=== PATIENT | male | born 1945 | race Caucasian/White ===

== ENCOUNTER 2017-04-30 11:18 | Outpatient (CLI) | payer MEDICARE, OTHER ==
[~2017-04-30] VITALS: Ht 195.6 cm; Wt 167.8 kg
[2017-04-30] MEDS ORDERED: DOXA8TAB73 PO (11:44)
[2017-04-30] MEDS ORDERED: ASPI-586 PO (11:44)
[2017-04-30] MEDS ORDERED: SIMV40TA4 PO (11:44)
[2017-04-30] MEDS ORDERED: PENI500T PO (11:44)
[2017-04-30] MEDS ORDERED: RANI150T90 PO (11:44)
[2017-04-30] MEDS ORDERED: L.AC1CAP6 PO (11:44)
[2017-04-30] MEDS ORDERED: METO-333 PO (11:44)
[2017-04-30] MEDS ORDERED: OMEG-109 PO (11:44)
[2017-04-30 12:30] LABS: BASOPHILS % (AUTO) 1 % (0-10); EOSINOPHILS # (AUTO) 0.2 10^3/uL (0.0-0.3); EOSINOPHILS % (AUTO) 3 % (0-10); HEMATOCRIT 43 % (40-54); LYMPHOCYTES # (AUTO) 1.9 X 10^3 (1.0-4.0); LYMPHOCYTES % (AUTO) 26 % (12-44); MEAN CORPUSCULAR HEMOGLOBIN 29 PG (25-34); MEAN CORPUSCULAR HGB CONC 32 G/DL (32-36); MEAN CORPUSCULAR VOLUME 90 FL (80-99); MEAN PLATELET VOLUME 10.1 FL (7.4-10.4); MONOCYTES # (AUTO) 0.9 X 10^3 (0.0-1.0); MONOCYTES % (AUTO) 13 % (0-12); NEUTROPHILS # (AUTO) 4.2 X 10^3 (1.8-7.8); NEUTROPHILS % (AUTO) 57 % (42-75); PLATELET COUNT 253 10^3/uL (130-400); RED BLOOD COUNT 4.81 10^6/uL (4.35-5.85); RED CELL DISTRIBUTION WIDTH 15.1 % (10.0-14.5); WHITE BLOOD COUNT 7.3 10^3/uL (4.3-11.0)
[2017-04-30 12:34] LABS: BILIRUBIN,URINE NEGATIVE (NEGATIVE); CLARITY,URINE VERY CLOUDY; COLOR,URINE YELLOW; GLUCOSE, URINE (UA) NEGATIVE (NEGATIVE); KETONES,URINE NEGATIVE (NEGATIVE); LEUKOCYTE ESTERASE ,URINE 3+ (NEGATIVE); NITRITE,URINE POSITIVE (NEGATIVE); PH,URINE 5 (5-9); PROTEIN,URINE 3+ (NEGATIVE); UROBILINOGEN,URINE NORMAL (NORMAL)
[2017-04-30 12:43] LABS: BACTERIA,URINE LARGE /HPF; RBC,URINE 50-100 /HPF; WBC,URINE 50-100 /HPF
[2017-04-30 12:47] LABS: CALCIUM 9.3 MG/DL (8.5-10.1); CREATININE SERUM 1.35 MG/DL (0.60-1.30); POTASSIUM 4.4 MMOL/L (3.6-5.0)
== END 2017-04-30 12:20 | disposition home or self-care (01) ==
LOC: PREOP 11:18
PROVIDERS: ATTEND Urology
DX: Z01.812 Encounter for preprocedural laboratory examination (principal); Z11.2 Encounter for screening for other bacterial diseases; N40.1 Benign prostatic hyperplasia with lower urinary tract symptoms; R33.8 Other retention of urine; N31.9 Neuromuscular dysfunction of bladder, unspecified; N21.0 Calculus in bladder
CPT/HCPCS: 36415; 80048; 81000; 85025; 87077; 87081; 87088

== ENCOUNTER 2017-05-02 06:42 | Day surgery (SDC) | payer MEDICARE, OTHER ==
[~2017-05-02] VITALS: Ht 195.6 cm; Wt 167.8 kg
[~2017-05-02 06:42] MED LIST: ASPI-586 PO; DOXA8TAB73 PO; L.AC1CAP6 PO; METO-333 PO; OMEG-109 PO; PENI500T PO; RANI150T90 PO; SIMV40TA4 PO
[2017-05-02] MEDS ORDERED: cefTRIAXone 1 GM (ROCEPHIN) VIAL ONE (06:44)
[2017-05-02] MEDS ORDERED: NS (IVPB) 50 ML ONE (06:45)
[2017-05-02 07:00] VITALS: BP 129/75
[2017-05-02] MEDS ORDERED: LEVOFLOXACIN 500 MG/D5W 100 ML (PRE-MIX) IV ONE (07:00)
[2017-05-02] MEDS ORDERED: cefTRIAXone 1 GM/NS 50 ML IVPB IV ONE ×2 (07:00)
--- NOTE | 2017-05-02 07:02 | Progress Note-Pre Operative ---
Pre-Operative Progress Note H&P Reviewed The H&P was reviewed, patient examined and no changes noted. Date Seen by Provider: May 02, 2017 Time Seen by Provider: 07:01 Date H&P Reviewed: May 02, 2017 Time H&P Reviewed: 07:01 Pre-Operative Diagnosis: BPH, RETENTION, AND BLADDER STONES GENIA SHELDON MD May 02, 2017 7:02 am
[2017-05-02] MEDS ORDERED: proPOfol 200 MG/20 ML (DIPRIVAN) VIAL IV ONE (07:03)
[2017-05-02] MEDS ORDERED: DEXAMETHASONE 10 MG/ML (DECADRON) 1 ML VIAL ONE (07:03)
[2017-05-02] MEDS ORDERED: fentaNYL INJECTION 100 MCG/2 ML AMP ONE (07:03)
[2017-05-02] MEDS ORDERED: LIDOCAINE PF 2% 5 ML (XYLOCAINE) VIAL ONE (07:03)
[2017-05-02] MEDS ORDERED: ONDANSETRON 4 MG/2 ML (SDV) Z0FRAN ONE (07:03)
[2017-05-02] MEDS ORDERED: SEVOFLURANE (ULTANE) 15 ML INHAL SOLN ONE ×5 (07:03→08:31)
--- NOTE | 2017-05-02 07:03 | Progress Note-Post Operative ---
Post-Operative Progess Note Surgeon (s)/Manager Personnel Selection (s) Surgeon GENIA SHELDON MD Manager Personnel Selection: GERMÁN Pre-Operative Diagnosis BPH, RETENTION, AND BLADDER STONES Post-Operative Diagnosis SAME Procedure & Operative Findings Date of Procedure 05/02/17 Procedure Performed/Findings CYSTOLITHOTOMY AND SUPRAPUBIC TUBE PLACEMENT Anesthesia Type GENERAL Estimated Blood Loss Estimated blood loss (mL): NEGLIGIBLE Specimens/Packing Specimens Removed BLADDER STONES Packing: N/A GENIA SHELDON MD May 02, 2017 7:03 am
[2017-05-02] MEDS ORDERED: MIDAZOLAM 2 MG/2 ML (VERSED) VIAL ONE (07:04)
[2017-05-02] MEDS ORDERED: LACTATED RINGERS 1,000 ML IV PRN (07:12)
[2017-05-02] MEDS ORDERED: GENTAMICIN 40 MG/ML 2 ML INJ SDV ONE (07:14)
[2017-05-02] MEDS ORDERED: LIDOCAINE 1% INJ 20 ML (XYLOCAINE) VIAL ONE (07:14)
[2017-05-02] MEDS ORDERED: cefTRIAXone INJECTION 1,000 MG in NS (IVPB) 50 ML IV ONE (07:15)
[2017-05-02] MEDS ORDERED: LEVOFLOXACIN 500 MG/100 ML IV 100 ML IV ONE (07:15)
[2017-05-02] MEDS ORDERED: PHENYLEPHRINE 100 MCG/ML 10 ML (ANESTHESIA) SYR ONE (07:53)
[2017-05-02] MEDS ORDERED: NEOSTIGMINE (BLOXIVERZ ) 1 MG/1ML 10 ML VIAL ONE (08:19)
[2017-05-02] MEDS ORDERED: GLYCOPYRROLATE 0.2 MG/ML (ROBINUL) 2 ML VIAL ONE (08:19)
[2017-05-02] MEDS ORDERED: ROCURONIUM 50 MG/5 ML (ZEMURON) VIAL IV ONE (08:43)
[2017-05-02] MEDS ORDERED: fentaNYL INJECTION 100 MCG/2 ML AMP IVP PRN (09:00)
[2017-05-02] MEDS ORDERED: GENTAMICIN IVPB 80 MG/50 ML 50 ML IV ONE (09:00)
[2017-05-02] MEDS ORDERED: ONDANSETRON 4 MG/2 ML (SDV) Z0FRAN IVP PRN (09:15)
[2017-05-02] MEDS ORDERED: HYDROcodone/APAP 10 MG/325 MG (LORTAB) TAB PO PRN (09:15)
[2017-05-02] MEDS ORDERED: D5W IV ONE (09:15)
[2017-05-02] MEDS ORDERED: ZOLPIDEM 5 MG (AMBIEN) TAB PO PRN (09:15)
[2017-05-02] MEDS ORDERED: GENTAMICIN IV ONE (09:15)
[2017-05-02] MEDS: morphine INJ 10 MG/ML 1ML (SYR OR VIAL) IVP PRN ×2 (09:23→09:29)
[2017-05-02 10:20] VITALS: BP 121/60
[2017-05-02] MEDS: D5 LR IV SOLUTION 1,000 ML IV SCH ×2 (10:41→18:25)
[2017-05-02] MEDS: ONDANSETRON 4 MG/2 ML (SDV) Z0FRAN IVP PRN (10:42)
[2017-05-02 12:00] VITALS: BP 129/84
--- NOTE | 2017-05-02 13:25 | OPERATIVE REPORT ---
DATE OF SERVICE: 05/02/2017 PREOPERATIVE DIAGNOSIS: Benign prostatic hypertrophy with urinary retention and bladder stones. POSTOPERATIVE DIAGNOSIS: Benign prostatic hypertrophy with urinary retention and bladder stones. OPERATION PERFORMED: Cystolithotomy and insertion of suprapubic tube. SURGEON: Estrada Sheldon M.D. TESTING COORDINATOR: Nate Ludwig DO. ANESTHESIA: General. COMPLICATIONS: None. DESCRIPTION OF PROCEDURE: Under satisfactory general anesthesia, the patient in supine position and the abdomen, genitalia and thighs were prepped and draped in usual sterile fashion. Before doing so, the bladder was distended with 500 mL of antibiotic solution through the present urethral catheter, which was clamped. A midline incision was made, carried through skin, subcutaneous tissue and fascia. The midline was identified. The thigh retracted laterally. The bladder was identified and confirmed by a needle and syringe draining fluid from it. Two stay sutures of chromic catgut tug suture and a vertical cystostomy was performed. The bladder wall was found to be pretty thick. The prostate was felt to be enlarged as expected. There were three good size stones in the bladder that were removed. There were no further stones. A suprapubic tube was placed and the bladder opening was closed with first running 2-0 chromic catgut for the mucosa interrupted around the catheter and then the seromuscular layer with interrupted 2-0 chromic. The closure was watertight. There was no leakage at all. There was no nasal drainage, no bleeding. The balloon was inflated to 20 mL connected to gravity draining clear fluid. Closure was performed in layers. The recti were approximated with interrupted 3-0 chromic catgut. The subcutaneous tissue with interrupted 3-0 plain and the skin with doris. The suprapubic tube was secured in position with an 0 silk suture. Needle, sponge and instrument counts were correct x2. Estimated blood loss was negligible. The patient tolerated the procedure and anesthesia well and was sent to recovery room in stable condition with both catheter draining were addressed. Job ID: [id number] DocumentID: [id number] Dictated Date: 05/02/2017 09:11:52 Technical Specialist Date: 05/02/2017 13:25:01 Dictated By: ESTRADA SHELDON MD [facility]
[2017-05-02 15:40] VITALS: BP 115/75
[2017-05-02 19:45] VITALS: BP 118/70
[2017-05-03] VITALS: BP 122/75
[2017-05-03] MEDS: D5 LR IV SOLUTION 1,000 ML IV SCH ×2 (02:19→10:46)
[2017-05-03 04:02] VITALS: BP 131/77
[2017-05-03] MEDS: ONDANSETRON 4 MG/2 ML (SDV) Z0FRAN IVP PRN (05:16)
[2017-05-03] MEDS ORDERED: FAMOTIDINE 20 MG (PEPCID) TABLET PO NR (07:00)
[2017-05-03] MEDS ORDERED: PANTOPRAZOLE 40 MG/10 ML (PROTONIX) VIAL IV NR (07:00)
[2017-05-03 08:30] VITALS: BP 151/72
[2017-05-03] MEDS ORDERED: cefTRIAXone INJECTION 1,000 MG in NS (IVPB) 50 ML IV ONE (09:00)
[2017-05-03] MEDS ORDERED: HYDR-3820 PO (11:47)
[2017-05-03] MEDS ORDERED: ONDA4VIA28 PO (11:47)
--- NOTE | 2017-05-03 11:51 | Discharge Inst-Urology ---
Discharge Inst-Urology Discharge Medications New, Converted, or Re-newed RX: Transmited to Pharmacy Patient Instructions/Follow Up Plan Please make appointment to been seen in office in 2 weeks. DC urethral catheter prior to discharge Provide leg bag and large bag with instructions Increase oral fluids for 48 hours and then as needed. Showers no bath Keep bowels soft and moving, Laxatives PRN Rest till appointment. If questions or concerns contact your physician Or seek help at emergency department. GENIA SHELDON MD May 03, 2017 11:51 am
[2017-05-03] MEDS ORDERED: CIPR500T21 PO (11:53)
--- NOTE | 2017-05-03 11:55 | Progress Note-Urology ---
Progress Note-Urology Progress Notes/Assess & Plan Progress/Assessment & Plan DOING GREAT EXCEPT FOR SOME NAUSEA GETTING BETTER THOUGH. ABDOMEN SOFT NON TENDER. URINE CLEAR. DC ERIC AND DISCHARGE WITH INSTRUCTIONS. Final Diagnosis BPH WITH URINE RETENTION AND BLADDER STONES GENIA SHELDON MD May 03, 2017 11:55
[2017-05-03 12:49] VITALS: BP 151/72
== END 2017-05-03 13:00 | disposition home or self-care (01) ==
LOC: SDC 06:42 → 4TH 10:05 → SDC 05-03 13:00
PROVIDERS: ATTEND Urology
DX: N40.1 Benign prostatic hyperplasia with lower urinary tract symptoms (principal); R33.9 Retention of urine, unspecified; N21.0 Calculus in bladder; I25.10 Atherosclerotic heart disease of native coronary artery without angina pectoris; I10 Essential (primary) hypertension; K21.9 Gastro-esophageal reflux disease without esophagitis; E78.5 Hyperlipidemia, unspecified; Z95.5 Presence of coronary angioplasty implant and graft; E66.01 Morbid (severe) obesity due to excess calories; Z68.41 Body mass index [BMI] 40.0-44.9, adult
CPT/HCPCS: 86850; 86900; 86901; 94664

== ENCOUNTER → 2021-01-28 | Outpatient (CLI) | payer MEDICARE, OTHER ==
[~2021-01-28] MED LIST changes: +ACHYD1T PO; +CIPR500T21 PO; +ONDA2VIACC PO; +SIMV40TA25 PO; -SIMV40TA4 PO
--- NOTE | 2021-01-28 12:42 | Diagnostic Imaging Report ---
PROCEDURE: CT abdomen and pelvis without contrast. TECHNIQUE: Multiple contiguous axial images were obtained through the abdomen and pelvis without the use of intravenous contrast. Auto Exposure Controls were utilized during the CT exam to meet ALARA standards for radiation dose reduction. INDICATION: Ongoing urinary tract infections with suprapubic catheter in place. Patient has history of kidney cancer status post left nephrectomy. No prior studies are available for comparison. The lung bases are clear. The liver is unremarkable. There are small stones within the gallbladder. No biliary ductal dilatation is seen. Pancreas and spleen are unremarkable. No adrenal mass on the right is identified. Right kidney is unremarkable. Left kidney is surgically absent. Left adrenal gland is not well-visualized and may be surgically absent as well. No recurrent mass is identified. Aorta is nonaneurysmal. No central retroperitoneal or mesenteric lymphadenopathy is identified. Bowel loops are normal caliber. There is no obstruction. There is diverticulosis of the sigmoid but no evidence of acute diverticulitis. The bladder contains a suprapubic catheter and appears to be decompressed. Prostate is markedly enlarged measuring 8.9 x 9.2 cm. No pelvic lymphadenopathy is identified. Bony structures are nonacute. IMPRESSION: 1. Cholelithiasis. 2. Status post left nephrectomy. No residual or recurrent neoplasm or evidence of lymphadenopathy is detected. 3. Uncomplicated diverticulosis. 4. Prostatomegaly. Dictated by: Dictated on workstation # [id number]
--- NOTE | 2021-01-28 13:35 | Diagnostic Imaging Report ---
HISTORY: Stones in the bladder, history of urinary tract infection. Left nephrectomy. COMPARISON: CT from the same day FINDINGS: Frontal views of the abdomen demonstrate calcifications in the pelvis, likely the bladder stone seen on the prior CT. The largest measures up to 1.8 cm, seen on the left. There is prostatic calcification as well. No stone is seen in the right kidney or along the expected course of the right ureter. No bowel distention is seen although portions of the abdomen are outside the [id number]. IMPRESSION: 1. Multiple calculi in the urinary bladder. Dictated by: Dictated on workstation # [id number]
== END ==
LOC: RAD 12:00
PROVIDERS: ATTEND Urology
DX: N21.0 Calculus in bladder (principal); N40.0 Benign prostatic hyperplasia without lower urinary tract symptoms; K80.20 Calculus of gallbladder without cholecystitis without obstruction; K57.30 Diverticulosis of large intestine without perforation or abscess without bleeding; Z96.0 Presence of urogenital implants; Z85.528 Personal history of other malignant neoplasm of kidney; Z90.5 Acquired absence of kidney
CPT/HCPCS: 74018; 74176